=== PATIENT | female | born 1990 | race Caucasian/White ===

== ENCOUNTER 2019-11-01 09:55 | Inpatient (IN) | payer SELFPAY, OTHER ==
[2019-11-01] VITALS (14 sets, daily range): BP systolic 116–153; BP diastolic 63–92; PULSE 16–77; RESP 12–16; TEMP 36.7–37.3; O2SAT 96–100; BMI 23.0
[2019-11-01] MEDS: Lactated Ringers 1,000 ML 999 ML IV (10:10)
[2019-11-01] MEDS: Sodium Citrate/Citric Acid 30 ML UDC PO (10:23)
[2019-11-01] MEDS: Cefazolin 2 GM in 0.9% Normal Saline 100 ML IV (10:25)
[2019-11-01 10:33] LABS: Absolute Lymphocyte Count 1.46 X10^3/uL (0.83-4.51); Absolute Neutrophil Count 9.2 X10^3/uL (2.0-7.7); Basophil# 0.03 X10^3/uL; Basophil% 0.3 % (0-1); Eosinophil# 0.11 X10^3/uL; Eosinophils% 0.9 % (0-5); Hematocrit 37.8 % (37-47); Hemoglobin 13.3 g/dL (12.0-15.0); Lymphocyte # 1.46 X10^3/ul (4.0); Lymphocyte % 12.5 % (19-41); Mean Corp Hgb Conc 35.2 g/dL (32-36); Mean Corpuscular Volume 93.8 fL (81-99); Monocyte# 0.78 X10^3/uL; Monocyte% 6.7 % (0-10); NRBC Flagged by Analyzer 0 % (0-5); Neutrophil # 9.23 X10^3/uL (2.7-7.7); Neutrophil % 79.3 % (47-70); Platelet Count 168 K/mm3 (150-450); RBC Distribution Width CV 12.1 % (11.6-14.6); RBC Distribution Width SD 41.7 fl (35.1-43.9); Red Blood Count 4.03 M/mm3 (4.2-5.4); White Blood Count 11.7 K/mm3 (4.4-11.0)
[2019-11-01 10:51] LABS: Fibrinogen 526 mg/dl (203-444)
--- NOTE | 2019-11-01 11:01 | HP.PCM_ITS ---
- Problem List (1) IUGR (intrauterine growth retardation), delivered, current hospitalization Status: Acute (2) heart deceleration Status: Acute (3) Active labor at term Status: Acute History Date of Admission: 11/01/19 Final GALA: 10/29/19 - first visit at 13 weeks Final GALA Source: LMP Gestational age: 40 Weeks and 3 Days History of this : This is a 29 year-old, , at 40w4d weeks gestational age presents in active labor. Patient has been receiving care by tile conduit layer around the community and had complications of low fundal heights however the international relations professor states that she was reassured because of previous pregnancies having low fundal height and having healthy uncomplicated deliveries per the international relations professor. She started into labor last night and was 4 to 5 cm this morning with irregular contractions. When the international relations professor checked her she thought she felt the edge of the placenta. She states the patient had minimal bleeding. She states she heard several heart rate decelerations at home and brought her in for evaluation. Upon initially putting her on the monitor heart rate tracing was noted to be 150 with minimal variability and recurrent late decelerations therefore the decision was made for an emergent primary . Allergies No Known Allergies Allergy (Verified 11/01/19 10:20) Smoking Status: Never smoker Alcohol: None Number of Fetus(es): 1 NST - FHR Rate Baby A Baseline: 150 Variability:: Minimal Accelerations:: None Decelerations:: Late NST Reactive:: Non-Reactive FHR Category:: Category II History Past Pregnancies: Past Pregnancies 5 previous term deliveries at home, previous child at 8 months due to genetic defect Expected Infant Delivery Method: Primary Section, Stat Section Review of Systems Constitutional: Denies: Fever, Malaise Eyes: Denies: Blurred vision, Vision Change HEENT: Denies: Head Aches, Visual Changes Cardiovascular: Denies: Chest Pain, Palpitations Respiratory: Denies: Cough, Shortness of Breath, Wheezing Gastrointestinal: Denies: Abdominal Pain, Diarrhea, Nausea, Vomiting Genitourinary: Denies: Dysuria, Hematuria Musculoskeletal: Denies: Joint Pain, Muscle pain Skin: Denies: Lesions, Rash Neurological: Denies: Blurred vision, Focal weakness, Headaches Psychiatric: Denies: Anxiety, Depression Endocrine: Denies: Heat/ Cold Intolerance Hematologic/ Lymphatic: Denies: Easy Bruising, Easy Bleeding Physical Exam General: Alert, Cooperative, No apparent distress HEENT: Atraumatic, Normocephalic. Negative for: Thyromegaly, Lymphadenopathy Cardiovascular: Regular rate Lungs: Normal air movement Abdomen: Soft, Non Tender, Gravid Neurological: Deep Tendon Reflexes 2+/4 and Symmetrical, Neuro grossly intact. Negative for: Clonus BLOOD BANK TECHNICIAN: Normal external genitalia. Negative for: Vulvar lesions Estimated gestational size: Appropriate for gestational size Presentation: Cephalic Assessment/Plan All Active Problems IUGR (intrauterine growth retardation), delivered, current hospitalization (Acute) heart deceleration (Acute) Active labor at term (Acute) This is a 29 year-old, at 39 weeks gestational age presents IAL severe iugr recurrent heart rate decels plan proceeding with immediate primary csection type and cross due to partial placenta previa seen on bedside ultrasound.
[2019-11-01 11:06] LABS: Rubella IgG 131.3 IU/mL
[2019-11-01] MEDS: Oxytocin 30 units/NS 500 ml 30 UNITS/500 ML IV.SOLN 167 UNITS IV (11:21)
[2019-11-01 11:36] LABS: HIV - WCH Non-Reactive (Nonreactive); Hepatitis B Surface Antigen Non-Reactive (Nonreactive); Hepatitis C Antibody Non-Reactive (Nonreactive)
[2019-11-01] MEDS: CLARIFY ORDER NOTE (11:42)
[2019-11-01] MEDS: Lactated Ringers 1,000 ML 100 ML IV (14:49)
[2019-11-01] MEDS: HYDROmorphone 1 MG/ML Syringe IV (14:49)
[2019-11-01] MEDS: Ketorolac 30 MG/ML Syringe IV (17:31)
--- NOTE | 2019-11-01 19:07 | NURSING ---
at 1730 pt ambulated to chair, at 1900 returned to bed with 1 assist
--- NOTE | 2019-11-01 20:51 | OP.PCM_ITS ---
Problem List (1) IUGR (intrauterine growth retardation), delivered, current hospitalization Status: Acute (2) heart deceleration Status: Acute (3) Active labor at term Status: Acute Delivery Classification: Stat Final GALA: 10/28/19 Gestational age: 40 Weeks and 4 Days rehab physician: Kandace Sarkar Type of Anesthesia:: General Special Medications: sugey Implants Used: none Date of Procedure: 11/01/19 Pre-Operative Diagnosis: deceleration, partial placenta previa, severe IUGR Post-Operative Diagnosis: same Description of Procedure: Meyers catheter was placed. The patient was placed in the dorsal supine position with leftward tilt. Patient was prepped and draped in the normal sterile fashion. general anesthesia was induced. Pfannenstiel skin incision was made with the scalpel and carried through to the underlying layer of fascia with the scalpel. Fascia was nicked in the midline and the incision extended laterally. The rectus bellies were dissected off superiorly and inferiorly with out complication both sharply and bluntly. The peritoneum was entered digitally. The incision was stretched and a low transverse uterine incision was made with the scalpel. The 's head was delivered atraumatically followed by the anterior and posterior shoulders without complication the rest of the infant delivered. The cord was clamped and cut and the infant was handed off to awaiting nurse. The placenta was delivered spontaneously immediately following and was noted to be intact and have a three-vessel cord. The uterus was exteriorized cleared of all clots and debris, and the incision was closed in a double layer closure using #1 Monocryl. The ovaries and fallopian tubes were noted to be within normal limits. The uterus was returned to the maternal abdomen and gutters were cleared of all clots and debris. sugey was applied to the incision. The peritoneum was closed with 3-0 Monocryl in a running fashion. Gloves were changed prior to fascial closure. Fascia was closed with 0 PDS in a running fashion. Subcutaneous tissue was copiously irrigated and the skin was closed with 3-0 Monocryl in a subcuticular fashion. Mepilex dressing was applied without complication. Patient was taken to recovery in stable condition. It was discussed with the patient that based on the clinical information obtained during this encounter, combined with her history, at this time I would recommend vaginal deliveries for future deliveries if further pregnancies are desired. Amniotic Membrane Rupture Type: Artificial Amniotic Fluid Description: Lightly stained meconium Placenta Disposition: [facility] Specimen(s) sent to pathology: yes Drain: Meyers to straight drain Cord Entanglement: None Gender: Female Antibiotic Given: Ancef 2 grams IV x1 Complications: None - Admit VTE Documentation VTE Present on Admission: No VTE Mechan Device Prophylaxis: SCD's Multi Select Codes - Urinary/Genital Urinary/Genital CPT Codes: 85559 delivery+PP Care([facility])
[2019-11-02 00:30] VITALS: BP 126/74; PULSE 62; RESP 16; TEMP 37.3; O2SAT 98
[2019-11-02] MEDS: 0.9% Saline Lock 10 ML Syringe IV ×2 (00:44→06:03)
[2019-11-02] MEDS: Ketorolac 30 MG/ML Syringe IV ×2 (00:44→06:03)
[2019-11-02 04:47] VITALS: BP 110/62; PULSE 85; RESP 16; TEMP 37; O2SAT 97
[2019-11-02 04:58] LABS: Hematocrit 33.4 % (37-47); Hemoglobin 11.2 g/dL (12.0-15.0); Mean Corp Hgb Conc 33.5 g/dL (32-36); Mean Corpuscular Hgb 32.7 pg (27.0-32.0); Mean Corpuscular Volume 97.4 fL (81-99); Mean Platelet Vol. 11.7 fl (6.2-12.0); Platelet Count 134 K/mm3 (150-450); RBC Distribution Width CV 12.3 % (11.6-14.6); RBC Distribution Width SD 43.7 fl (35.1-43.9); Red Blood Count 3.43 M/mm3 (4.2-5.4); White Blood Count 11.6 K/mm3 (4.4-11.0)
[2019-11-02 07:57] VITALS: BP 128/82; PULSE 59; RESP 16; TEMP 36.3; O2SAT 99
--- NOTE | 2019-11-02 08:16 | PN.OBGYN_ITS ---
Patient Problems: Active and Suspected Problems IUGR (intrauterine growth retardation), delivered, current hospitalization (Acute) heart deceleration (Acute) Active labor at term (Acute) Subjective: doing well no complaints pain controlled no CP SOB N V ambulating well tolerating po lochia moderate - Physical Exam Vitals/I&O's: Vital Signs Temp Pulse Resp BP Pulse Ox 97.3 F L 59 L 16 128/82 H 99 11/02/19 07:57 11/02/19 07:57 11/02/19 07:57 11/02/19 07:57 11/02/19 07:57 Oxygen Delivery Method Room Air Weight: 142 lb 13.753 oz Body Mass Index (BMI) 23.0 Intake and Output for Last 24 Hours 10/31/19 11/01/19 11/02/19 23:59 23:59 23:59 Intake Total 1359.75 / 1359.75 1718.33 / 1718.33 Output Total 1250 / 1250 1350 / 1350 Balance 109.75 / 109.75 368.33 / 368.33 General: Alert, Oriented x3 Abdomen: Soft, Non Tender Laboratory Results 11/01/19 10:10: WBC 11.7 H, RBC 4.03 L, Hgb 13.3, Hct 37.8, MCV 93.8, MCH 33.0 H , MCHC 35.2, RDW Std Deviation 41.7, RDW Coeff of Theodora 12.1, Plt Count 168, MPV 12.0, Immature Gran % (Auto) 0.300, Neut % (Auto) 79.3 H, Lymph % (Auto) 12.5 L, Jerome % (Auto) 6.7, Eos % (Auto) 0.9, Baso % (Auto) 0.3, Absolute Neuts (auto) 9.2 H, Absolute Lymphs (auto) 1.46, Nucleated RBC % 0 11/01/19 10:10: Rubella IgG Antibody 131.3 11/01/19 10:10: RPR Pending 11/01/19 10:10: Blood Type A POSITIVE, Antibody Screen NEGATIVE 11/01/19 10:10: Hep Bs Antigen Non-Reactive, Hepatitis C Antibody Non-Reactive, HIV 1&2 Antibody Non-Reactive 11/01/19 10:10: Fibrinogen 526 H 11/01/19 10:10: Crossmatch See Detail 11/02/19 04:52: WBC 11.6 H, RBC 3.43 L, Hgb 11.2 L, Hct 33.4 L, MCV 97.4, MCH 32.7 H, MCHC 33.5, RDW Std Deviation 43.7, RDW Coeff of Theodora 12.3, Plt Count 134 L, MPV 11.7 Current Medications Acetaminophen (Tylenol) 1,000 mg PO Q8H PRN PRN PRN Reason: Pain Score 1-3/10;Temp>99.6F Bisacodyl (Dulcolax) 10 mg RECTAL UD PRN PRN Reason: If no BM Hydrocortisone (Hytone) 1 applic TOPICAL TID PRN PRN; Protocol PRN Reason: Discomfort Hydromorphone HCl (Dilaudid Inj) 0.5 - 1.5 mg IV Q3H PRN PRN PRN Reason: Pain Score 4-10/10 Stop: 11/02/19 11:37 Last Admin: 11/01/19 14:49 Dose: 0.5 mg Documented by: Naloxone HCl 4 mg/ Dextrose 504 mls @ 0 mls/hr IV .Q0M PRN; Protocol PRN Reason: Respiratory depression Ketorolac Tromethamine (Toradol (Bkc)) 30 mg IV Q6H FIONA Stop: 11/03/19 11:31 Last Admin: 11/02/19 06:03 Dose: 30 mg Documented by: Methylergonovine Maleate (Methergine) 0.2 mg IM X1 PRN PRN Reason: Uterine Atony Naloxone HCl (Narcan) 0.02 mg IV Q1M PRN PRN Reason: RR <10 and pt unresponsive Naproxen (Naprosyn) 250 - 500 mg PO Q8H PRN PRN PRN Reason: Pain Score 1-3/10 Ondansetron HCl (Zofran) 4 mg IV Q4H PRN PRN PRN Reason: Nausea Oxycodone HCl (Oxyir) 5 - 10 mg PO Q4H PRN PRN PRN Reason: Pain Score 4-10/10 Prochlorperazine Edisylate (Compazine Iv) 10 mg IV Q6H PRN PRN PRN Reason: NAUSEA Senna/Docusate Sodium (Senokot-S, Olivia-Colace) 0 tablet PO DAILY PRN PRN Reason: Constipation Simethicone (Mylicon) 80 mg PO PCHS PRN PRN Reason: Indigestion/stomach pain Sodium Chloride () 5 - 15 ml IV UD PRN PRN Reason: SALINE FLUSH Last Admin: 11/02/19 06:03 Dose: 10 ml Documented by: Medical Necessity - Tobacco Use Smoking Status: Never smoker Assessment/Plan All Active Problems IUGR (intrauterine growth retardation), delivered, current hospitalization (Acute) heart deceleration (Acute) Active labor at term (Acute) s/p LTCS PPD # 1 1. routine post care 2. pumping- support given 3. rh positive baby transpoted to [place], discharge patient today
--- NOTE | 2019-11-02 08:17 | DCINST_ITS ---
Discharge Diet: No Restrictions Discharge Activity: May Not Drive - for 2 weeks, May not drive while taking narcotic pain medications., May Shower, May Take a Tub Bath - in 7 days May resume sexual activity in: 4-6 weeks Lifting Restrictions: 20 pounds Additional Activity Instructions:: Nothing in the vagina for 4-6 weeks. You may return to work/school in 6 weeks. Call your doctor if your incision/area has: Continuous Slow Oozing, Sudden Increased Bleeding, Increased Pain/ Swelling, Increased Redness, Foul Smelling Discharge Call your doctor if you observe: Fever of 101 or Higher, Using more than one pad per hour - for 2 hours Suture Line Care: Avoid Pulling/Pushing, Avoid Pinching/Bending Cleanse incision/area with: Keep Dressing Clean & Dry Additional Instructions: recommend growth ultrasound in next 30-32 weeks, and if growth restriction is seen recommend additional testing in with NSTs and additional growth ultrasounds. If you experience any of the following, contact your healthcare provider. * Bleeding that soaks a pad every hour for 2 hours * Fever 100.4 or higher * Unrelieved incision or abdominal pain * Swelling, redness, discharge or bleeding from your incision or episiotomy site * Your incision begins to separate * Problems urinating (including inability to urinate or burning while urinating). * Visual changes * Severe headache * Flu-like symptoms * Pain or redness in one of both of your breasts * Pain, warmth, tenderness or swelling in your legs, especially the calf area * Frequent nausea and vomiting * Symptoms of depression or anxiety If you experience any of the following, call 911 or go to the nearest Emergency Room. * Chest pain * Problems breathing * Seizure activity * Partial or complete paralysis of a body part, slurred speech, weakness or drooping of the face, or a sudden inability to walk or hold your balance Allergies/Adverse Reactions: Allergies No Known Allergies Allergy (Verified 11/01/19 10:20) Follow-Up: Call to make an appointment with your doctor for an incision check in 1-2 weeks. You will also need a 6 week post- follow up appointment. Test results from this visit will be discussed in further detail at your follow- up appointment, if applicable. Please Follow Up With: Theresa Johnson MD - Call to make an appointment for an incision check in 1-2 [phone] When: You will need a post- check in 6 weeks. Primary Care Physician: Care Physician,No Primary [Primary Care Provider] -
[2019-11-07 02:39] LABS: Rapid Plasmin Reagin (RPR) NONREACTIVE (NONREACTIVE)
== END 2019-11-02 10:40 | disposition home or self-care (01) | DRG 787 ==
PROVIDERS: Admitting Provider Obstetrics & Gynecology; Referring Provider Obstetrics & Gynecology; Visit Provider Obstetrics & Gynecology
DX: O76 Abnormality in fetal heart rate and rhythm complicating labor and delivery (principal); O44.23 Partial placenta previa NOS or without hemorrhage, third trimester; O36.5930 Maternal care for other known or suspected poor fetal growth, third trimester, not applicable or unspecified; O77.0 Labor and delivery complicated by meconium in amniotic fluid; Z3A.40 40 weeks gestation of pregnancy; Z37.0 Single live birth
CPT/HCPCS: 59025; 59050; 76815; 85025; 85027; 85384; 86592; 86703; 86762; 86803; 86850; 86900; 86901; 87340; 99218; 99251; J7120; A4216; G0378; G0463; J2405